=== PATIENT | female | born 2005 | race Hispanic/Latino ===

== ENCOUNTER 2024-10-26 16:08 | Emergency (ER) | payer SELFPAY ==
[~2024-10-26] VITALS: Ht 154.9 cm; Wt 49.0 kg
[2024-10-26 16:21] VITALS: PULSE 84; RESP 16; TEMP 98.4; O2SAT 100
== END 2024-10-26 17:02 | disposition home or self-care (01) ==
LOC: ER 16:35
DX: S20.214A Contusion of middle front wall of thorax, initial encounter (principal); V43.62XA Car passenger injured in collision with other type car in traffic accident, initial encounter; Y92.488 Other paved roadways as the place of occurrence of the external cause
CPT/HCPCS: 93005; 99282